=== PATIENT | male | born 1950 | race Caucasian/White ===

== ENCOUNTER 2016-06-14 08:25 | Outpatient (RCR) | payer MEDICARE, OTHER ==
[~2016-06-14 08:25] MED LIST: ASPI-586 PO; ATOR10TA PO; DOXY100T41 PO; FLC1T PO; IRON18TA; LSNP10T PO; METH2.5T PO; METO-270 PO; PRED5TAB PO
[2016-06-14 08:52] LABS: MEAN PLATELET VOLUME 11.3 FL (6.0-9.5); PLATELET COUNT 136 10^3uL (150-450); WHITE BLOOD COUNT 10.69 10^3uL (4.0-11.0)
[2016-06-14 09:13] LABS: MEAN CORPUSCULAR HEMOGLOBIN 21.8 PG (26.0-34.0); MEAN CORPUSCULAR HGB CONC 29.8 g/dL (31.0-37.0); MEAN CORPUSCULAR VOLUME 73 FL (80-100)
[2016-06-14 09:42] LABS: ANISOCYTOSIS MODERATE; BAND NEUTROPHILS % 0 % (0-6); EOSINOPHILS % 2 % (0-4); LYMPHOCYTES # 1.2 #; MONOCYTES # 0.7 #; MONOCYTES % 7 % (3-11); RBC MORPH SEE REFERENCE (NORMAL); SEGMENTED NEUTROPHILS % 79 % (51-67); TOTAL CELLS COUNTED 100
[2016-07-12 08:32] LABS: MEAN PLATELET VOLUME 10.4 FL (6.0-9.5); PLATELET COUNT 341 10^3uL (150-450)
[2016-07-12 08:35] LABS: MEAN CORPUSCULAR HEMOGLOBIN 21.6 PG (26.0-34.0); MEAN CORPUSCULAR HGB CONC 30.1 g/dL (31.0-37.0); MEAN CORPUSCULAR VOLUME 72 FL (80-100)
[2016-07-12 09:16] LABS: BAND NEUTROPHILS % 5 % (0-6); EOSINOPHILS % 2 % (0-4); LYMPHOCYTES # 1.9 #; MONOCYTES # 1.7 #; MONOCYTES % 10 % (3-11)
[2016-07-12 09:17] LABS: ANISOCYTOSIS SLIGHT; HYPOCHROMASIA SLIGHT; MICROCYTOSIS SLIGHT; RBC MORPH SEE REFERENCE (NORMAL); SEGMENTED NEUTROPHILS % 72 % (51-67); TOTAL CELLS COUNTED 100
[2016-08-09 09:06] LABS: MEAN PLATELET VOLUME 10.7 FL (6.0-9.5); PLATELET COUNT 285 10^3uL (150-450); WHITE BLOOD COUNT 13.56 10^3uL (4.0-11.0)
[2016-08-09 09:41] LABS: MEAN CORPUSCULAR HEMOGLOBIN 21.4 PG (26.0-34.0); MEAN CORPUSCULAR HGB CONC 30.1 g/dL (31.0-37.0); MEAN CORPUSCULAR VOLUME 71 FL (80-100)
[2016-08-09 11:10] LABS: BAND NEUTROPHILS % 0 % (0-6); EOSINOPHILS % 1 % (0-4); LYMPHOCYTES # 1.2 #; MONOCYTES # 0.9 #; MONOCYTES % 7 % (3-11); SEGMENTED NEUTROPHILS % 81 % (51-67); TOTAL CELLS COUNTED 100
[2016-08-09 11:11] LABS: ANISOCYTOSIS SLIGHT; HYPOCHROMASIA SLIGHT; MICROCYTOSIS MODERATE; RBC MORPH SEE REFERENCE (NORMAL)
[2016-08-10 17:57] LABS: IRON 20 ug/dL (65-175); UNBOUND IRON CONTENT 404 ug/dl (126-382)
[2016-09-07 07:37] LABS: BASOPHILS % (AUTO) 1 % (0-2); EOSINOPHILS # (AUTO) 0.1 10^3uL; EOSINOPHILS % (AUTO) 2 % (0-4); LYMPHOCYTES # (AUTO) 1.3 X10^3; MEAN PLATELET VOLUME 10.4 FL (6.0-9.5); MONOCYTES # (AUTO) 0.7 X10^3; MONOCYTES % (AUTO) 14 % (3-11); NEUTROPHILS # (AUTO) 2.9 X10^3; NEUTROPHILS % (AUTO) 57 % (51-67); PLATELET COUNT 179 10^3uL (150-450); WHITE BLOOD COUNT 4.99 10^3uL (4.0-11.0)
[2016-09-07 08:05] LABS: MEAN CORPUSCULAR VOLUME 71 FL (80-100)
== END 2016-09-12 | disposition home or self-care (01) ==
LOC: LAB 08:25
PROVIDERS: ATTEND Internal Medicine Hematology & Oncology
DX: D45 Polycythemia vera (principal)
CPT/HCPCS: 36415; 82728; 83540; 83550; 85025

== ENCOUNTER 2016-10-05 10:22 | Outpatient (RCR) | payer MEDICARE, OTHER ==
[2016-10-05 11:55] LABS: BAND NEUTROPHILS % 4 % (0-6); EOSINOPHILS % 0 % (0-4); MONOCYTES % 9 % (3-11); RBC MORPH NORMAL (NORMAL); SEGMENTED NEUTROPHILS % 77 % (51-67); TOTAL CELLS COUNTED 100
[2016-11-02 08:01] LABS: BASOPHILS % (AUTO) 1 % (0-2); EOSINOPHILS # (AUTO) 0.2 10^3uL; EOSINOPHILS % (AUTO) 2 % (0-4); LYMPHOCYTES # (AUTO) 1.4 X10^3; MEAN CORPUSCULAR HGB CONC 32.4 g/dL (31.0-37.0); MONOCYTES # (AUTO) 1.2 X10^3; MONOCYTES % (AUTO) 9 % (3-11); NEUTROPHILS % (AUTO) 77 % (51-67); PLATELET COUNT 339 10^3uL (150-450); WHITE BLOOD COUNT 12.98 10^3uL (4.0-11.0)
[2016-11-02 08:13] LABS: MEAN CORPUSCULAR HEMOGLOBIN 25.2 PG (26.0-34.0); MEAN CORPUSCULAR VOLUME 78 FL (80-100)
[2016-11-30 07:57] LABS: BASOPHILS % (AUTO) 1 % (0-2); EOSINOPHILS # (AUTO) 0.2 10^3uL; EOSINOPHILS % (AUTO) 2 % (0-4); LYMPHOCYTES # (AUTO) 1.1 X10^3; MEAN CORPUSCULAR VOLUME 82 FL (80-100); MEAN PLATELET VOLUME 10.2 FL (6.0-9.5); MONOCYTES # (AUTO) 1.2 X10^3; MONOCYTES % (AUTO) 9 % (3-11); NEUTROPHILS # (AUTO) 10.9 X10^3; NEUTROPHILS % (AUTO) 81 % (51-67); PLATELET COUNT 299 10^3uL (150-450); WHITE BLOOD COUNT 13.52 10^3uL (4.0-11.0)
[2016-11-30 08:03] LABS: MEAN CORPUSCULAR HEMOGLOBIN 25.7 PG (26.0-34.0); MEAN CORPUSCULAR HGB CONC 31.4 g/dL (31.0-37.0)
[2016-12-28 09:37] LABS: BASOPHILS % (AUTO) 1 % (0-2); EOSINOPHILS # (AUTO) 0.1 10^3uL; EOSINOPHILS % (AUTO) 1 % (0-4); LYMPHOCYTES # (AUTO) 1.2 X10^3; MEAN CORPUSCULAR HGB CONC 32.2 g/dL (31.0-37.0); MEAN CORPUSCULAR VOLUME 84 FL (80-100); MEAN PLATELET VOLUME 10.2 FL (6.0-9.5); MONOCYTES # (AUTO) 1.1 X10^3; MONOCYTES % (AUTO) 8 % (3-11); NEUTROPHILS # (AUTO) 10.7 X10^3; NEUTROPHILS % (AUTO) 81 % (51-67); PLATELET COUNT 330 10^3uL (150-450); WHITE BLOOD COUNT 13.25 10^3uL (4.0-11.0)
[2016-12-28 09:39] LABS: MEAN CORPUSCULAR HEMOGLOBIN 26.9 PG (26.0-34.0)
== END 2017-01-03 | disposition home or self-care (01) ==
LOC: LAB 10:22
PROVIDERS: ATTEND Internal Medicine Hematology & Oncology
DX: D45 Polycythemia vera (principal)
CPT/HCPCS: 36415; 85025

== ENCOUNTER 2017-01-24 07:45 | Outpatient (RCR) | payer MEDICARE, OTHER ==
[2017-01-24 07:55] LABS: BASOPHILS % (AUTO) 1 % (0-2); EOSINOPHILS # (AUTO) 0.2 10^3uL; EOSINOPHILS % (AUTO) 2 % (0-4); MEAN CORPUSCULAR HEMOGLOBIN 26.8 PG (26.0-34.0); MEAN CORPUSCULAR HGB CONC 31.3 g/dL (31.0-37.0); MEAN CORPUSCULAR VOLUME 86 FL (80-100); MEAN PLATELET VOLUME 10.5 FL (6.0-9.5); MONOCYTES # (AUTO) 1.1 X10^3; MONOCYTES % (AUTO) 8 % (3-11); NEUTROPHILS # (AUTO) 10.2 X10^3; NEUTROPHILS % (AUTO) 81 % (51-67); PLATELET COUNT 229 10^3uL (150-450); WHITE BLOOD COUNT 12.62 10^3uL (4.0-11.0)
== END 2017-02-02 19:17 | disposition home or self-care (01) ==
LOC: LAB 07:45
PROVIDERS: ATTEND Internal Medicine Hematology & Oncology
DX: D45 Polycythemia vera (principal)
CPT/HCPCS: 36415; 85025